=== PATIENT | female | born 1965 | race Caucasian/White ===

== ENCOUNTER 2017-11-13 22:52 | Emergency (ER) | payer OTHER ==
[~2017-11-13] VITALS: Ht 160 cm; Wt 79.4 kg
[~2017-11-13 22:52] MED LIST: AMOX1TAB12 PO; ASPIR-LOW81 MG PO; AVAPRO300 MG PO; CATAPRES0.1 MG; GLUMETZA1000 MG PO; NORVASC5 MG; ORPH100T PO; TOPROL XL100 M1 PO
== END 2017-11-14 03:41 | disposition home or self-care (01) ==
LOC: ER 22:52
DX: E11.65 Type 2 diabetes mellitus with hyperglycemia (principal)